=== PATIENT | male | born 1970 | race African-American/Black ===

== ENCOUNTER 2020-04-23 16:34 | Emergency (ER) | payer MEDICARE, OTHER ==
[~2020-04-23] VITALS: Ht 177.8 cm; Wt 89.8 kg
--- NOTE | 2020-04-23 19:19 | NUR ---
PT BROUGHT TO AT 1808 BY [facility] FOR INITAL CONTACT/EVAL OF V/S.
--- NOTE | 2020-04-23 20:35 | Diagnostic Imaging Report ---
EXAM: CT Abdomen and Pelvis WITHOUT contrast INDICATION: ^ABDOMINAL PAIN COMPARISON: None. TECHNIQUE: Abdomen and pelvis were scanned utilizing a multidetector helical scanner from the lung base to the pubic symphysis without administration of IV contrast. Absence of intravenous contrast decreases sensitivity for detection of focal lesions and vascular pathology. Coronal and sagittal reformations were obtained. Routine protocol was performed. IV CONTRAST: None ORAL CONTRAST: None COMPLICATIONS: None RADIATION DOSE: Total DLP: 966.68 mGy*cm Estimated effective dose: (DLP x 0.015 x size factor) mSv CTDIvol has been reviewed. It is below the limits set by the Radiation Protocol Committee (RPC). FINDINGS: LINES and TUBES: None. LOWER THORAX: Mild mosaic attenuation. Aortic valve calcifications. HEPATOBILIARY: Unenhanced liver is unremarkable. No biliary ductal dilation. GALLBLADDER: Surgically absent. SPLEEN: No splenomegaly. PANCREAS: No focal masses or ductal dilatation. Punctate calcifications, could be vascular or related to chronic pancreatitis. ADRENALS: No adrenal nodules KIDNEYS/URETERS: Polycystic kidneys. No hydronephrosis. Limited for evaluation of renal parenchyma without intravenous contrast. No stones. Vascular calcifications. GI TRACT: No abnormal distention, wall thickening, or evidence of bowel obstruction. Appendix is minimally distended up to 7 mm without noticeable adjacent fat stranding. Small hiatal hernia. PELVIC ORGANS/BLADDER: Bladder is collapsed. LYMPH NODES: No lymphadenopathy. VESSELS: Unremarkable. PERITONEUM / RETROPERITONEUM: No free air or fluid. BONES: Old fracture deformity of the right inferior pubic ramus with slightly increased sclerosis. SOFT TISSUES: Small fat-containing umbilical hernia. IMPRESSION: 1. No definite acute inflammatory process in the abdomen/pelvis, considering limitations of unenhanced study.. 2. Appendix is minimally distended without significant surrounding inflammation, less likely to represent appendicitis. Please correlate clinically. 3. Polycystic kidneys. 4. Small hiatal hernia. Signed by: Dr. Miller Hope MD on 04/23/2020 8:31 PM
--- NOTE | 2020-04-23 21:51 | Emergency Department Note ---
History of Present Illnes History of Present Illness Chief Complaint: Abdominal Complaints History of Present Illness This is a 49 year old male, HIV positive, ESRD on dialysis, and hypertension who presents with a 4 week history of left flank and low back pain, with radiation into the left groin. Patient states that the pain has been then alternating on both the left and right sides of the low back, and he feels that the pain is worse today. He denies any radiation of the pain into the buttocks or legs. He denies any numbness, tingling, or bowel or bladder dysfunction. Patient denies any heavy lifting or known injury to his back. He also denies any history of kidney stones. He does not make urine. He denies any fever, chills, nausea, or vomiting. The pain does seem to be worse with movement he has not taken anything for the pain. 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 Onset (how long ago): month(s) (1) Location: low back Quality: tight, aching, sharp stabbing Radiation: Reports abdomen (left side), Reports other (left groin) Severity: severe Onset quality: gradual Duration (how long): month(s) (1, worse today.) Timing of current episode: constant Progression: worsening Chronicity: new Context: Denies trauma/injury, Denies new medications Relieving factors: none Exacerbating factors: movement Associated symptoms: Reports denies other symptoms; Denies chest pain, Denies fever/chills, Denies nausea/vomiting, Denies shortness of breath Treatments prior to arrival: none Past Medical/Family History Physician Review I have reviewed the patient's past medical and family history. Any updates have been documented here. Past Medical History Recent Fever: No Clinical Suspicion of Infectio: No New/Unexplained Change in Ment: No Past Medical History: Hypertension, HIV (viruses undetectable), ESRD, Hemodyalisis (every Wednesday, denies missing any dialysis sessions) Past Surgical History: Cholecysctectomy Other Surgery: THYROID, L-ARM FISTULA Social History Smoking Cessation: Never Smoker Alcohol Use: None Any Illegal Drug Use: No TB Exposure/Symptoms: No Physically hurt or threatened: No Family History Family history of heart diseas: No Other Any Pre-Existing Lines (PICC,: Yes (L-ARM FISTULA) Is patient up to date on immun: No Review of Systems Review of Systems Constitutional: Denies chills, Denies fever EENTM: Reports no symptoms Cardiovascular: Denies chest pain, Denies palpitations Respiratory: Reports no symptoms; Denies cough, Denies pain on inspiration, Denies pain with cough, Denies dyspnea on exertion Gastrointestinal: Reports abdominal pain; Denies constipation, Denies diarrhea, Denies nausea, Denies vomiting Genitourinary: Reports no symptoms Musculoskeletal: Reports back pain, Reports muscle pain (low back) Integumentary: Reports no symptoms Neurological: Reports no symptoms; Denies numbness, Denies tingling, Denies weakness Psychological: Reports no symptoms Hematological/Lymphatic: Reports no symptoms Review of other systems: All other systems negative Physical Exam Related Data Triage Vital Signs Vital Signs Date Time Temp Pulse Resp B/P (MAP) Pulse Ox O2 Delivery O2 Flow Rate FiO2 04/23/20 19:00 97.4 93 18 174/106 97 Room Air Vital signs reviewed: Yes Physical Exam CONSTITUTIONAL Constitutional: Present well-developed, Present well-nourished; Absent distressed, Absent ill appearing HENT HENT: Present normocephalic, Present atraumatic, Present oropharynx clear/moist, Present nose normal HENT L/R: Present left ext ear normal, Present right ext ear normal EYES Eyes: Reports PERRL, Reports conjunctivae normal NECK Neck: Present ROM normal PULMONARY Pulmonary: Present effort normal, Present breath sounds normal CARDIOVASCULAR Cardiovascular: Present regular rhythm, Present heart sounds normal, Present capillary refill normal, Present normal rate GASTROINTESTINAL Abdominal: Present soft, Present bowel sounds normal, Present tender (mild left flank pain), Present left CVA tenderness; Absent distension, Absent guarding, Absent rebound GENITOURINARY Genitourinary: Present exam deferred SKIN Skin: Present warm, Present dry MUSCULOSKELETAL Musculoskeletal: Present tenderness (tenderness to palpation of bilateral lumbar paraspinal muscles, left greater than right; no lumbar vertebral point tenderness) NEUROLOGICAL Neurological: Present alert, Present oriented x 3, Present no gross motor or sensory deficits PSYCHOLOGICAL Psychological: Present mood/affect normal, Present judgement normal Results Laboratory Laboratory CBC - nl except for H/H = 11.2/35.2, plt = 136k; CMP - (due for dialysis tomorrow) - Na = 145, K+ - 6, Cl = 98, Ca = 7.9, BUN = 51, Cr = 12.1, AST = 40; Lab results reviewed: Yes Imaging Imaging results reviewed: Yes Impressions REPORT STATUS: Signed EXAM: CT Abdomen and Pelvis WITHOUT contrast INDICATION: ^ABDOMINAL PAIN COMPARISON: None. TECHNIQUE: Abdomen and pelvis were scanned utilizing a multidetector helical scanner from the lung base to the pubic symphysis without administration of IV contrast. Absence of intravenous contrast decreases sensitivity for detection of focal lesions and vascular pathology. Coronal and sagittal reformations were obtained. Routine protocol was performed. IV CONTRAST: None ORAL CONTRAST: None COMPLICATIONS: None RADIATION DOSE: Total DLP: 966.68 mGy*cm Estimated effective dose: (DLP x 0.015 x size factor) mSv CTDIvol has been reviewed. It is below the limits set by the Radiation Protocol Committee (RPC). FINDINGS: LINES and TUBES: None. LOWER THORAX: Mild mosaic attenuation. Aortic valve calcifications. HEPATOBILIARY: Unenhanced liver is unremarkable. No biliary ductal dilation. GALLBLADDER: Surgically absent. SPLEEN: No splenomegaly. PANCREAS: No focal masses or ductal dilatation. Punctate calcifications, could be vascular or related to chronic pancreatitis. ADRENALS: No adrenal nodules KIDNEYS/URETERS: Polycystic kidneys. No hydronephrosis. Limited for evaluation of renal parenchyma without intravenous contrast. No stones. Vascular calcifications. GI TRACT: No abnormal distention, wall thickening, or evidence of bowel obstruction. Appendix is minimally distended up to 7 mm without noticeable adjacent fat stranding. Small hiatal hernia. PELVIC ORGANS/BLADDER: Bladder is collapsed. LYMPH NODES: No lymphadenopathy. VESSELS: Unremarkable. PERITONEUM / RETROPERITONEUM: No free air or fluid. BONES: Old fracture deformity of the right inferior pubic ramus with slightly increased sclerosis. SOFT TISSUES: Small fat-containing umbilical hernia. IMPRESSION: 1. No definite acute inflammatory process in the abdomen/pelvis, considering limitations of unenhanced study.. 2. Appendix is minimally distended without significant surrounding inflammation, less likely to represent appendicitis. Please correlate clinically. 3. Polycystic kidneys. 4. Small hiatal hernia. Signed by: Dr. Miller Hope MD on 04/23/2020 8:31 PM Dictated By: MILLER HOPE MD 30 Transcribed By: GURWINDER on 04/23/202030 COPY TO: DENIS EDWARDS MD~ Diagnostics Tests Diagnostic test(s) reviewed: Yes Assessment & Plan Medical Decision Making MDM - Take medications as directed. Apply ice to the low back, area pain, frequently throughout the day, for the next several days, and then he may switch to heat. - Important to follow up for dialysis tomorrow, as scheduled, due to your abnormal labs, as discussed, in the ED this evening. - Follow-up with her primary care physician, if symptoms persist. Assessment & Plan Final Impression: (1) Low back pain (2) HIV (human immunodeficiency virus infection) (3) Muscle spasm of back (4) ESRD (end stage renal disease) on dialysis Depart Disposition: HOME, SELF-CARE Last Vital Signs Date Time Temp Pulse Resp B/P (MAP) Pulse Ox O2 Delivery O2 Flow Rate FiO2 04/23/20 19:00 97.4 93 18 174/106 97 Room Air Medications in the ED Discharge medications: written on paper RX, due to printer not functioning: - Cyclobenzaprine 5 mg - 1 po tid, prn muscle spasm, # 20, no RF - Tylenol #3 - 1-2 po q 6 hours, prn pain, #20, no RF DENIS EDWARDS MD Apr 23, 2020 21:51
[2020-04-23 22:10] VITALS: BP 150/91
== END 2020-04-23 22:09 | disposition home or self-care (01) ==
LOC: FSED 18:00
DX: M54.5 Low back pain (principal); M62.830 Muscle spasm of back; I12.0 Hypertensive chronic kidney disease with stage 5 chronic kidney disease or end stage renal disease; N18.6 End stage renal disease; Z99.2 Dependence on renal dialysis; B20 Human immunodeficiency virus [HIV] disease
CPT/HCPCS: 74176; 99284